=== PATIENT | female | born 2000 | race Caucasian/White ===

== ENCOUNTER 2022-05-23 04:00 | Emergency (ER) | payer BC ==
[~2022-05-23] VITALS: Ht 170.2 cm; Wt 45.4 kg
[2022-05-23] MEDS ORDERED: IV NORMAL SALINE 1000 ML BAG IV ONE (04:45)
[2022-05-23] MEDS ORDERED: PROCHLORPERAZINE EDISYLATE 10 MG/2 ML VIAL IV ONE (04:45)
[2022-05-23] MEDS ORDERED: PROCHLORPERAZINE EDISYLATE 10 MG/2 ML VIAL ONE (05:03)
[2022-05-23 05:10] LABS: HEMATOCRIT 38.6 % (31.2-41.9); MEAN CORPUSCULAR HEMOGLOBIN 29.9 uug (24.7-32.8); MEAN CORPUSCULAR VOLUME 86.5 fL (75.5-95.3); PLATELET COUNT (AUTO) 247 K/uL (179-408)
[2022-05-23 05:14] LABS: POTASSIUM 3.9 mmol/L (3.5-5.1)
[2022-05-23 05:19] LABS: BILIRUBIN,DIRECT 0.2 mg/dL (0.0-0.2); BILIRUBIN,TOTAL 1.1 mg/dL (0.2-1.0); TOTAL PROTEIN, SERUM 7.8 g/dL (6.4-8.2)
[2022-05-23 05:27] LABS: IRON, SERUM 58 ug/dL (50-175)
[2022-05-23] MEDS ORDERED: IV NS 1000 ML 1,000 ML IV ONE (06:15)
[2022-05-23] MEDS ORDERED: HYDROMORPHONE 1 MG/1 ML DISP.SYRIN IV ONE (06:15)
[2022-05-23] MEDS ORDERED: PROC10TA29 PO (06:21)
[2022-05-23] MEDS ORDERED: ONDANSETRON 4 MG/2 ML VIAL ONE (07:00)
[2022-05-23 07:10] VITALS: BP 115/76
[2022-05-23] MEDS ORDERED: ONDANSETRON 4 MG/2 ML VIAL IV ONE (07:15)
== END 2022-05-23 07:26 | disposition home or self-care (01) ==
LOC: ER 04:00
DX: R11.2 Nausea with vomiting, unspecified (principal); R10.84 Generalized abdominal pain; D72.829 Elevated white blood cell count, unspecified; F50.9 Eating disorder, unspecified; Z68.1 Body mass index [BMI] 19.9 or less, adult
CPT/HCPCS: 99284; 96374; 96361; 96375; 80076; 80048; 82607; 83550; 83690; 85025; 36415; J2405; J0780; J7040 ×2; A4663